=== PATIENT | male | born 2000 | race African-American/Black ===

== ENCOUNTER 2020-03-11 00:47 | Emergency (ER) | payer SELFPAY ==
[~2020-03-11] VITALS: Ht 188 cm; Wt 86.4 kg
[2020-03-11 01:03] VITALS: BP 151/83; PULSE 65; TEMP 99
== END 2020-03-11 01:37 | disposition home or self-care (01) ==
LOC: COL.ER 00:47
DX: N45.1 Epididymitis (principal)